=== PATIENT | female | born 1960 | race Two or more races ===

== ENCOUNTER 2018-10-09 08:15 | Emergency (ER) | payer OTHER ==
[~2018-10-09] VITALS: Ht 157.5 cm; Wt 77.1 kg
--- NOTE | 2018-10-09 08:28 | NUR ---
BIB DAUGHTER, COUGH WITH CONGESTION x 4 DAYS, SORETHROAT, TO ER BED 10, HOOKED TO SHINE, PROVIDED W WARM BLANKET, AWAITING MD HCARLES.
--- NOTE | 2018-10-09 09:10 | NUR ---
DR AGUILERA AT BEDSIDE
[2018-10-09] MEDS ORDERED: DEXAMETHASONE SOD PHOSPHATE 10 MG/ML VIAL IM ONE (09:30)
[2018-10-09] MEDS ORDERED: KETOROLAC TROMETHAMINE INJ 60 MG/2 ML VIAL IM ONE (09:30)
[2018-10-09] MEDS ORDERED: KETOROLAC TROMETHAMINE INJ 30 MG/ML VIAL ONE (09:36)
[2018-10-09] MEDS ORDERED: DEXAMETHASONE SOD PHOSPHATE 4 MG/ML VIAL ONE (09:36)
[2018-10-09 09:44] VITALS: BP 150/89
--- NOTE | 2018-10-09 09:44 | NUR ---
Patient discharged to home in stable condition. Written and verbal after care instructions given. Patient verbalizes understanding of instruction.
== END 2018-10-09 09:45 | disposition home or self-care (01) ==
LOC: ER 08:15
DX: J02.9 Acute pharyngitis, unspecified (principal); Z98.890 Other specified postprocedural states
CPT/HCPCS: 96372 ×2; 99283; J1100; J1885

== ENCOUNTER 2018-12-23 17:58 | Emergency (ER) | payer OTHER ==
[~2018-12-23] VITALS: Ht 157.5 cm; Wt 75.3 kg
[2018-12-23 18:06] VITALS: BP 154/93
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
--- NOTE | 2018-12-23 18:43 | NUR ---
AT BEDSIDE FOR EVAL.
[2018-12-23] MEDS ORDERED: TDAP [DIPH/PERTUSSIS/TET] 0.5 ML VIAL IM ONE ×2 (18:49→19:00)
--- NOTE | 2018-12-23 19:10 | NUR ---
SUTURING DONE BY .
--- NOTE | 2018-12-23 19:16 | NUR ---
[place] in [facility] - 12/23/18 at 1917 by WENDY REPORT GIVEN TO BING HINSON.
--- NOTE | 2018-12-23 19:17 | NUR ---
REPORT GIVEN TO BING COOPER FOR SRAVAN.
== END 2018-12-23 19:32 | disposition home or self-care (01) ==
LOC: ER 17:58
DX: S61.210A Laceration without foreign body of right index finger without damage to nail, initial encounter (principal); W25.XXXA Contact with sharp glass, initial encounter; Y93.G1 Activity, food preparation and clean up; Y92.89 Other specified places as the place of occurrence of the external cause; Y99.8 Other external cause status
CPT/HCPCS: 12002; 90471; 90715; 99283; A6403

== ENCOUNTER 2018-12-31 11:00 | Emergency (ER) | payer OTHER ==
[~2018-12-31] VITALS: Ht 157.5 cm; Wt 71.7 kg
[2018-12-31 11:18] VITALS: BP 153/68
--- NOTE | 2018-12-31 11:36 | NUR ---
SUTURES AREN'T READY TO REMOVED PER MD. PATIENT INSTRUCTED TO COME BACK IN 4-5 DAYS.
== END 2018-12-31 11:38 | disposition home or self-care (01) ==
LOC: ER 11:00
DX: S61.210D Laceration without foreign body of right index finger without damage to nail, subsequent encounter (principal); X58.XXXD Exposure to other specified factors, subsequent encounter

== ENCOUNTER 2019-01-05 12:19 | Emergency (ER) | payer OTHER ==
[~2019-01-05] VITALS: Ht 160 cm; Wt 74.4 kg
[2019-01-05 12:53] VITALS: BP 131/80
[2019-01-05] MEDS ORDERED: BENZOIN COMPOUND TINCT 60 ML BOTTLE ONE (13:12)
--- NOTE | 2019-01-05 13:27 | NUR ---
Patient discharged to home in stable condition. Written and verbal after care instructions given. Patient verbalizes understanding of instruction.
== END 2019-01-05 13:28 | disposition home or self-care (01) ==
LOC: ER 12:19
DX: S61.210D Laceration without foreign body of right index finger without damage to nail, subsequent encounter (principal); Z98.890 Other specified postprocedural states; W25.XXXD Contact with sharp glass, subsequent encounter

== ENCOUNTER 2019-03-12 17:17 | Emergency (ER) | payer OTHER ==
[~2019-03-12] VITALS: Ht 157.5 cm; Wt 74.8 kg
--- NOTE | 2019-03-12 17:30 | NUR ---
CAME IN FOR COUGH, CONGESTION, SORE THROAT FEVER AND CHILLS X 5 DAYS. TO ER BED 9, HOOKED TO MONITOR, CHJANGED TO HOSP GOWN, WARM BLANKET PROVIDED. SMITA TRIPP AT BEDSIDE
[2019-03-12] MEDS ORDERED: ACETAMINOPHEN ES 500 MG TABLET ONE (17:57)
[2019-03-12] MEDS ORDERED: ACETAMINOPHEN 325 MG TABLET PO ONE (18:00)
--- NOTE | 2019-03-12 18:03 | NUR ---
RAPID FLU SWAB SENT TO LAB
--- NOTE | 2019-03-12 19:16 | NUR ---
Patient discharged to home in stable condition. Written and verbal after care instructions given. Patient verbalizes understanding of instruction.
[2019-03-12 19:17] VITALS: BP 139/71
== END 2019-03-12 19:20 | disposition home or self-care (01) ==
LOC: ER 17:19
DX: J06.9 Acute upper respiratory infection, unspecified (principal)
CPT/HCPCS: 71045-TC

== ENCOUNTER 2021-01-08 20:50 | Emergency (ER) | payer OTHER ==
[~2021-01-08] VITALS: Ht 160 cm; Wt 79.4 kg
--- NOTE | 2021-01-08 21:12 | NUR ---
PATIENT BIBDAUGHTER, C/O DIZZINESS X3DAYS S/P "HIGH BP AT HOME". RECHECKED BP AT TRIAGE AND IT WAS 144/88. PATIENT ALERT AND ORIENTED X3. PATIENT IS AMBULATORYW TIH NON LABORED BREATHING.
--- NOTE | 2021-01-08 21:15 | NUR ---
LEFT AC 20G INITIATED. BLOOD SENT TO LAB
--- NOTE | 2021-01-08 21:17 | NUR ---
TAKEN TO RADIOLOGY
[2021-01-08 21:22] LABS: BASOPHILS % (AUTO) 0.6 % (0.0-2.0); EOSINOPHILS % (AUTO) 3.7 % (0.0-6.0); HEMATOCRIT 39 % (33-45); HEMOGLOBIN 13.1 g/dL (11.5-14.8); LYMPHOCYTES # (AUTO) 2.3 K/uL (0.8-4.8); LYMPHOCYTES % (AUTO) 30.9 % (20.0-44.0); MEAN CORPUSCULAR HGB CONC 33 g/dl (31.0-36.0); MEAN CORPUSCULAR VOLUME 88 fL (82-100); MONOCYTES # (AUTO) 0.6 K/uL (0.1-1.30); NEUTROPHILS # (AUTO) 4.3 K/uL (1.8-8.9); NEUTROPHILS % (AUTO) 56.8 % (43.0-81.0); PLATELET COUNT (AUTO) 320 K/uL (150-450); RED BLOOD CELL COUNT(AUTO) 4.45 MIL/uL (4.0-5.2); WHITE BLOOD COUNT (AUTO) 7.5 K/uL (4.3-11.0)
--- NOTE | 2021-01-08 21:26 | NUR ---
RETURNED FROM RADIOLOGY
[2021-01-08 21:37] LABS: ALANINE AMINOTRANSFERASE 37 U/L (12-78); ALBUMIN 3.3 g/dL (3.4-5.0); ALKALINE PHOSPHATASE 67 U/L (46-116); ASPARTATE AMINOTRANSFERASE 15 U/L (15-37); BILIRUBIN,DIRECT 0.1 mg/dL (0.0-0.2); BILIRUBIN,TOTAL 0.2 mg/dL (0.2-1.0); CALCIUM, SERUM 8.6 mg/dL (8.5-10.1); CARBON DIOXIDE 30 mmol/L (21-32); CHLORIDE 103 mmol/L (98-107); GLUCOSE 105 mg/dL (74-106); POTASSIUM 3.6 mmol/L (3.5-5.1); SODIUM SERUM 141 mmol/L (136-145); TOTAL PROTEIN, SERUM 8.3 g/dL (6.4-8.2); UREA NITROGEN, BLOOD 18 mg/dL (7-18)
[2021-01-08 22:09] VITALS: BP 127/70
--- NOTE | 2021-01-08 22:20 | NUR ---
Patient discharged to home in stable condition. Written and verbal after care instructions given. Patient verbalizes understanding of instruction. IV removed. Catheter intact and site benign. Pressure and 4x4 applied to site. No bleeding noted. Pt ambulatory with a steady gait
== END 2021-01-08 22:20 | disposition home or self-care (01) ==
LOC: ER 20:56
DX: R42 Dizziness and giddiness (principal); R51.9 Headache, unspecified; R03.0 Elevated blood-pressure reading, without diagnosis of hypertension
CPT/HCPCS: 36415; 70450-TC; 71045-TC; 80048-TC; 80076-TC; 84484-TC; 85025-TC

== ENCOUNTER 2023-07-02 19:36 | Emergency (ER) | payer OTHER ==
[~2023-07-02] VITALS: Ht 165.1 cm; Wt 81.6 kg
[2023-07-02] MEDS ORDERED: ONDANSETRON HCL/PF 4 MG/2 ML VIAL ONE (19:59)
[2023-07-02] MEDS: IV NS 0.9% 1,000 ML BAG IV ONE (20:06)
[2023-07-02] MEDS: ONDANSETRON HCL/PF 4 MG/2 ML VIAL IVP ONE (20:06)
[2023-07-02 20:11] LABS: BASOPHILS # (AUTO) 0.1 K/uL (0.0-0.2); BASOPHILS % (AUTO) 2.3 % (0.0-2.0); EOSINOPHILS # (AUTO) 0.2 K/uL (0.0-0.7); EOSINOPHILS % (AUTO) 3.9 % (0.0-6.0); HEMATOCRIT 39 % (33-45); HEMOGLOBIN 12.7 g/dL (11.5-14.8); LYMPHOCYTES # (AUTO) 1.6 K/uL (0.8-4.8); LYMPHOCYTES % (AUTO) 26.1 % (20.0-44.0); MEAN CORPUSCULAR HEMOGLOBIN 29 PG (26.0-33.0); MEAN CORPUSCULAR HGB CONC 33 g/dl (31.0-36.0); MEAN CORPUSCULAR VOLUME 89 fL (82-100); MONOCYTES # (AUTO) 0.4 K/uL (0.1-1.30); MONOCYTES % (AUTO) 7.3 % (2.0-12.0); NEUTROPHILS # (AUTO) 3.6 K/uL (1.8-8.9); NEUTROPHILS % (AUTO) 60.4 % (43.0-81.0); PLATELET COUNT (AUTO) 214 K/uL (150-450); RED BLOOD CELL COUNT(AUTO) 4.37 MIL/uL (4.0-5.2); RED CELL DISTRIBUTION WIDTH 13.4 % (11.5-15.0)
[2023-07-02 20:19] LABS: CALCIUM, SERUM 8.4 mg/dL (8.5-10.1); CREATININE 0.7 mg/dL (0.6-1.3); POTASSIUM 3.2 mmol/L (3.5-5.1)
[2023-07-02 20:25] LABS: ALBUMIN 3.3 g/dL (3.4-5.0); BILIRUBIN,DIRECT 0.1 mg/dL (0.0-0.2); BILIRUBIN,TOTAL 0.2 mg/dL (0.2-1.0); TOTAL PROTEIN, SERUM 7.9 g/dL (6.4-8.2)
[2023-07-02 20:36] LABS: APPEARANCE,URINE Slightly Cloudy (CLEAR); BILIRUBIN,URINE Negative (NEGATIVE); BLOOD, URINE Negative Ery/uL (NEGATIVE); COLOR,URINE YELLOW (YELLOW); KETONES,URINE Negative (NEGATIVE); LEUKOCYTE ESTERASE ,URINE Small (NEGATIVE); NITRITE, URINE Negative (NEGATIVE); PROTEIN,URINE Negative (NEGATIVE); UGLUCOSE Negative (NEGATIVE); UROBILINOGEN,URINE 0.2 EU/dL (0.2)
[2023-07-02 20:45] LABS: ADD URINE CULTURE YES; BACTERIA,URINE 1+ /HPF (None Seen); RBC,URINE 0-2 /HPF (0-2)
[2023-07-02] MEDS ORDERED: PANTOPRAZOLE 40 MG VIAL ONE (21:01)
[2023-07-02] MEDS ORDERED: MAG HYDROX/AL HYDROX/SIMETH 30 ML UDC ONE (21:02)
[2023-07-02] MEDS ORDERED: LIDOCAINE VISCOUS 2% UD 15 ML UDC ONE (21:02)
[2023-07-02] MEDS: MAG HYDROX/AL HYDROX/SIMETH 30 ML UDC PO ONE (21:04)
[2023-07-02] MEDS: PANTOPRAZOLE 80 MG in IV NS 0.9% 500 ML IV ONE (21:04)
[2023-07-02] MEDS: LIDOCAINE VISCOUS 2% UD 15 ML UDC MM ONE (21:04)
[2023-07-02] MEDS ORDERED: FAMO20TA80 PO (21:36)
[2023-07-02] MEDS ORDERED: ONDA4TAB11 PO (21:36)
[2023-07-02] MEDS ORDERED: PANT40TA49 PO (21:36)
[2023-07-02] MEDS ORDERED: MAG355OR18 PO (21:36)
[2023-07-02 22:11] VITALS: BP 136/84; TEMP 98.2; O2SAT 98
== END 2023-07-02 22:11 | disposition home or self-care (01) ==
LOC: ER 19:48
DX: R10.13 Epigastric pain (principal); R11.2 Nausea with vomiting, unspecified
CPT/HCPCS: 99284; 96365; 96361; 96375; 93005; 85025; 80048; 87086; 83690; 80076; 81001; 36415; 84484; J2405; J7030; J7040; C9113; A4223

== ENCOUNTER 2024-05-06 08:58 | Emergency (ER) | payer OTHER ==
[~2024-05-06] VITALS: Ht 157.5 cm; Wt 63.5 kg
[~2024-05-06 08:58] MED LIST: FAMO20TA80 PO; MAG355OR18 PO; ONDA4TAB11 PO; PANT40TA49 PO
[2024-05-06 09:53] LABS: BASOPHILS % (AUTO) 0.6 % (0.0-2.0); EOSINOPHILS # (AUTO) 0.2 K/uL (0.0-0.7); EOSINOPHILS % (AUTO) 3.6 % (0.0-6.0); HEMATOCRIT 39 % (33-45); LYMPHOCYTES # (AUTO) 1.5 K/uL (0.8-4.8); LYMPHOCYTES % (AUTO) 32.7 % (20.0-44.0); MEAN CORPUSCULAR HEMOGLOBIN 30 PG (26.0-33.0); MEAN CORPUSCULAR HGB CONC 33 g/dl (31.0-36.0); MEAN CORPUSCULAR VOLUME 89 fL (82-100); MONOCYTES # (AUTO) 0.4 K/uL (0.1-1.30); NEUTROPHILS # (AUTO) 2.6 K/uL (1.8-8.9); NEUTROPHILS % (AUTO) 55.1 % (43.0-81.0); PLATELET COUNT (AUTO) 231 K/uL (150-450); RED BLOOD CELL COUNT(AUTO) 4.41 MIL/uL (4.0-5.2); RED CELL DISTRIBUTION WIDTH 13.3 % (11.5-15.0); WHITE BLOOD COUNT (AUTO) 4.6 K/uL (4.3-11.0)
[2024-05-06 09:57] LABS: APPEARANCE,URINE CLEAR (CLEAR); BILIRUBIN,URINE NEGATIVE (NEGATIVE); BLOOD, URINE TRACE-INTA Ery/uL (NEGATIVE); COLOR,URINE YELLOW (YELLOW); KETONES,URINE NEGATIVE (NEGATIVE); LEUKOCYTE ESTERASE ,URINE 1+ (NEGATIVE); NITRITE, URINE NEGATIVE (NEGATIVE); PH,URINE 5.5 (5.0-8.0); PROTEIN,URINE NEGATIVE (NEGATIVE); UGLUCOSE NEGATIVE (NEGATIVE); UROBILINOGEN,URINE 0.2 EU/dL (0.2)
[2024-05-06 10:03] LABS: CALCIUM, SERUM 9.1 mg/dL (8.5-10.1); CARBON DIOXIDE 31 mmol/L (21-32); CHLORIDE 102 mmol/L (98-107); CREATININE 0.7 mg/dL (0.6-1.3); GLUCOSE 90 mg/dL (74-106); POTASSIUM 4.1 mmol/L (3.5-5.1); SODIUM SERUM 138 mmol/L (136-145); UREA NITROGEN, BLOOD 11 mg/dL (7-18)
[2024-05-06] MEDS ORDERED: MECLIZINE HCL 12.5 MG TABLET ONE (10:04)
[2024-05-06] MEDS ORDERED: ONDANSETRON HCL/PF 4 MG/2 ML VIAL ONE (10:04)
[2024-05-06] MEDS ORDERED: LIDOCAINE VISCOUS 2% UD 15 ML UDC ONE (10:04)
[2024-05-06] MEDS ORDERED: MAG HYDROX/AL HYDROX/SIMETH 30 ML UDC ONE (10:04)
[2024-05-06] MEDS ORDERED: FAMOTIDINE/PF INJ 20 MG/2 ML VIAL IV ONE (10:05)
[2024-05-06 10:09] LABS: ALANINE AMINOTRANSFERASE 22 U/L (12-78); ALBUMIN 3.5 g/dL (3.4-5.0); ALKALINE PHOSPHATASE 59 U/L (46-116); ASPARTATE AMINOTRANSFERASE 17 U/L (15-37); BILIRUBIN,DIRECT 0.1 mg/dL (0.0-0.2); BILIRUBIN,TOTAL 0.3 mg/dL (0.2-1.0); LIPASE 25 U/L (16-77); TOTAL PROTEIN, SERUM 8.1 g/dL (6.4-8.2)
[2024-05-06] MEDS: IV NS 0.9% 1,000 ML BAG IV ONE (10:14)
[2024-05-06] MEDS: FAMOTIDINE/PF INJ 20 MG/2 ML VIAL IV ONE (10:14)
[2024-05-06] MEDS: LIDOCAINE VISCOUS 2% UD 15 ML UDC MM ONE (10:15)
[2024-05-06] MEDS: ONDANSETRON HCL/PF 4 MG/2 ML VIAL IVP ONE (10:15)
[2024-05-06] MEDS: MECLIZINE HCL 12.5 MG TABLET PO ONE (10:15)
[2024-05-06] MEDS: MAG HYDROX/AL HYDROX/SIMETH 30 ML UDC PO ONE (10:15)
[2024-05-06 10:27] LABS: ADD URINE CULTURE YES; BACTERIA,URINE Few /HPF (None Seen); SQUAMOUS EPITHELIAL CELL,UR Many /HPF (None Seen)
[2024-05-06 11:23] VITALS: BP 145/80; TEMP 98.5; O2SAT 100
== END 2024-05-06 11:23 | disposition home or self-care (01) ==
LOC: ER 09:06
DX: R42 Dizziness and giddiness (principal); R11.0 Nausea
CPT/HCPCS: 99285; 96374; 70450; 71045; 96361; 96375; 93005; 85025; 80048; 83690; 80076; 81001; 36415; 84484; J8597; J3490; J2405; J7030

== ENCOUNTER 2024-11-07 14:13 | Emergency (ER) | payer OTHER ==
[~2024-11-07] VITALS: Ht 157.5 cm; Wt 68.0 kg
[2024-11-07 14:28] VITALS: BP 141/70; TEMP 98.5; O2SAT 100
[2024-11-07] MEDS ORDERED: IBUPROFEN 600 MG TABLET ONE (16:03)
[2024-11-07] MEDS: IBUPROFEN 600 MG TABLET PO ONE (16:15)
== END 2024-11-07 17:16 | disposition home or self-care (01) ==
LOC: ER 14:20
DX: S69.92XA Unspecified injury of left wrist, hand and finger(s), initial encounter (principal); M25.562 Pain in left knee; M79.642 Pain in left hand; W01.0XXA Fall on same level from slipping, tripping and stumbling without subsequent striking against object, initial encounter; Y93.89 Activity, other specified; Y92.89 Other specified places as the place of occurrence of the external cause; Y99.8 Other external cause status
CPT/HCPCS: 73130-TC; 73564-TC